=== PATIENT | female | born 2000 | race Caucasian/White ===

== ENCOUNTER 2022-12-03 19:07 | Emergency (ER) | payer OTHER ==
[~2022-12-03] VITALS: Ht 182.9 cm; Wt 84.1 kg
[~2022-12-03 19:07] MED LIST: CEFTIN500 MG PO
[2022-12-03 21:28] LABS: HEMATOCRIT 40.5 % (35.0-45.0); HEMOGLOBIN 13.9 g/dl (12.0-15.0); MEAN CELL VOLUME 90 fl (80.0-95.0); MEAN CORPUSCULAR HEMOGLOBIN 31 pg (26-32); MEAN CORPUSCULAR HGB CONC 34 g/dl (33.0-37.0); MEAN PLATELET VOLUME 10.9 fl (7.4-10.4); PLATELET COUNT 176 K/mm3 (130-400); REDCELL DISTRIBUTION WIDTH-CV 12.6 % (11.5-14.5)
[2022-12-03 21:51] LABS: ALBUMIN 3.5 gm/dL (3.5-5.0); BILIRUBIN,TOTAL 0.5 mg/dL (0.2-1.2); CALCIUM 9.6 mg/dL (8.4-10.2); CREATININE, serum 0.81 mg/dL (0.57-1.11); POTASSIUM 3.7 mmol/L (3.5-4.5); TOTAL PROTEIN 7.8 gm/dL (6.2-8.1)
[2022-12-03 21:54] LABS: BAND 10 % (0-10); LYMPHOCYTE 10 % (20.0-51.0); NEUTROPHILS 73 % (42.0-75.2); PLATELET ESTIMATE NORMAL (NORMAL)
[2022-12-04 00:05] VITALS: BP 104/62; PULSE 90; TEMP 100.9
== END 2022-12-04 00:05 | disposition home or self-care (01) ==
LOC: COL.ER 19:07
PROVIDERS: Nurse Practitioner Primary Care
DX: N12 Tubulo-interstitial nephritis, not specified as acute or chronic (principal); N30.90 Cystitis, unspecified without hematuria; Z28.310 Unvaccinated for COVID-19
CPT/HCPCS: J0696; J1885; J7030; Q9967